=== PATIENT | female | born 1940 | race Caucasian/White ===

== ENCOUNTER 2017-03-29 20:33 | Emergency (ER) | payer OTHER, MEDICARE ==
[2017-03-29 23:07] VITALS: BP 128/72
== END 2017-03-29 23:07 | disposition home or self-care (01) ==
LOC: ED 20:33
DX: M54.2 Cervicalgia (principal); M25.572 Pain in left ankle and joints of left foot; M25.571 Pain in right ankle and joints of right foot; Z79.891 Long term (current) use of opiate analgesic; Z79.899 Other long term (current) drug therapy
CPT/HCPCS: J1170; J1885; Q0162

== ENCOUNTER 2017-04-05 00:51 | Emergency (ER) | payer OTHER, MEDICARE ==
[2017-04-05 04:30] LABS: BASOPHIL % 0.2 % (0-2); PLATELET COUNT 262 x10^3mcL (130-400); RED CELL DISTRIBUTION WIDTH 12.5 % (11.5-14.5)
[2017-04-05 04:45] LABS: CALCIUM 9.2 mg/dL (8.5-10.1); CARBON DIOXIDE 28.8 mmol/L (21-32); CHLORIDE SERUM 104 mmol/L (98-107); CREATININE SERUM 0.7 mg/dL (0.6-1.0); GLUCOSE SERUM 99 mg/dL (74-106); POTASSIUM SERUM 3.1 mmol/L (3.5-5.1); SODIUM SERUM 140 mmol/L (136-145)
[2017-04-05 04:49] LABS: ALBUMIN 3.4 g/dL (3.4-5.0); ALKALINE PHOSPHATASE 128 U/L (46-116); ALT/SGPT 51 U/L (14-59); AST/SGOT 35 U/L (15-37); BILIRUBIN TOTAL 0.59 mg/dL (0.20-1.00); CHOLESTEROL 165 mg/dL (<200); HDL CHOLESTEROL 54 mg/dL (40-60); PHOSPHOROUS 3.1 mg/dL (2.5-4.9); TOTAL PROTEIN, SERUM 6.8 g/dL (6.4-8.2); URIC ACID 4.9 mg/dL (2.6-6.0)
[2017-04-05 05:36] VITALS: BP 167/96
== END 2017-04-05 07:09 | disposition short-term general hospital (02) ==
LOC: ED 00:51
PROVIDERS: Emergency Medicine
DX: S06.5X9A Traumatic subdural hemorrhage with loss of consciousness of unspecified duration, initial encounter (principal); I10 Essential (primary) hypertension; M54.2 Cervicalgia; M54.9 Dorsalgia, unspecified; M25.552 Pain in left hip; Z79.899 Other long term (current) drug therapy; W19.XXXA Unspecified fall, initial encounter; Y93.89 Activity, other specified; Y92.89 Other specified places as the place of occurrence of the external cause; Y99.8 Other external cause status
CPT/HCPCS: 36415; 83880; Q0092

== ENCOUNTER 2017-09-15 16:12 | Emergency (ER) | payer OTHER, MEDICARE ==
[~2017-09-15] VITALS: Ht 172.7 cm; Wt 58.3 kg
[2017-09-15 16:39] VITALS: BP 138/75; Ht 172.7 cm; Wt 58.3 kg
== END 2017-09-15 20:55 | disposition left against medical advice (07) ==
LOC: ED 16:12
DX: Z76.0 Encounter for issue of repeat prescription (principal); Z53.21 Procedure and treatment not carried out due to patient leaving prior to being seen by health care provider

== ENCOUNTER 2018-03-03 18:07 | Emergency (ER) | payer OTHER, MEDICARE ==
[~2018-03-03] VITALS: Ht 172.7 cm; Wt 58.6 kg
[2018-03-03 19:40] VITALS: BP 127/74
== END 2018-03-03 19:40 | disposition home or self-care (01) ==
LOC: ED 18:07
DX: G47.00 Insomnia, unspecified (principal); F41.9 Anxiety disorder, unspecified; I10 Essential (primary) hypertension; G89.29 Other chronic pain; M54.2 Cervicalgia; Z88.8 Allergy status to other drugs, medicaments and biological substances

== ENCOUNTER 2019-03-23 21:31 | Emergency (ER) | payer OTHER, MEDICARE ==
[~2019-03-23] VITALS: Ht 170.2 cm; Wt 59.4 kg
[2019-03-23 22:00] VITALS: Ht 170.2 cm; Wt 59.4 kg
[2019-03-23 22:57] VITALS: BP 142/85
== END 2019-03-23 22:57 | disposition home or self-care (01) ==
LOC: ED 21:31
DX: L23.9 Allergic contact dermatitis, unspecified cause (principal); I10 Essential (primary) hypertension; F41.9 Anxiety disorder, unspecified; G89.29 Other chronic pain; M81.0 Age-related osteoporosis without current pathological fracture; Z88.8 Allergy status to other drugs, medicaments and biological substances